=== PATIENT | female | born 1970 | race American Indian/Alaskan Native ===

== ENCOUNTER 2021-11-18 09:54 | Emergency (ER) | payer OTHER ==
--- NOTE | 2021-11-18 12:00 | XRay Report ---
Right shoulder-3 views INDICATION: right shoulder pain. COMPARISON: None available. IMPRESSION: No acute osseous abnormality. Normal alignment. No significant DJD. Soft tissues are u nremarkable. Signer Name: Genaro Menendez MD Signed: 11/18/2021 11:56 AM Workstation Name: [id number]
[2021-11-18 12:18] VITALS: BP 148/73
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
--- NOTE | 2021-11-18 13:06 | Cat Scan Report ---
CT head/brain wo con INDICATION / CLINICAL INFORMATION: 51 years Female; head injury, unable to hear left ear. TECHNIQUE: Routine CT head without contrast. All CT scans at this location are performed using CT dos e reduction for ALARA by means of automated exposure control. COMPARISON: None. FINDINGS: BRAIN / INTRACRANIAL CONTENTS: No acute hemorrhage, mass effect, midline shift, hydrocephalus, or acu te, large territorial infarct. No signs of significant atrophy or chronic infarct. No significant whi te matter abnormality seen. CRANIOCERVICAL JUNCTION: No significant abnormality. ORBITS: No significant abnormality of visualized orbits. SINUSES / MASTOIDS: Visualized paranasal sinuses and mastoid air cells are essentially clear. ADDITIONAL FINDINGS: None. IMPRESSION: 1. No focal mass, hemorrhage, hydrocephalus, or acute, large territorial infarct. Signer Name: Jcarlos Manzano MD, III Signed: 11/18/2021 1:02 PM Workstation Name: [id number]
== END 2021-11-18 13:29 | disposition home or self-care (01) ==
LOC: ED 09:54
DX: S09.90XA Unspecified injury of head, initial encounter (principal); H72.92 Unspecified perforation of tympanic membrane, left ear; Z91.010 Allergy to peanuts; Z79.899 Other long term (current) drug therapy; Y04.8XXA Assault by other bodily force, initial encounter; Y93.89 Activity, other specified; Y92.89 Other specified places as the place of occurrence of the external cause; Y99.8 Other external cause status
CPT/HCPCS: 70450; 99284